=== PATIENT | female | born 1960 | race Caucasian/White ===

== ENCOUNTER 2017-10-19 21:42 | Emergency (ER) | payer OTHER ==
[2017-10-19 21:59] VITALS: TEMP 98.7
--- NOTE | 2017-10-19 22:12 | ED ---
Chest Pain HPI - General Chief Complaint: Chest Pain Stated Complaint: KENISHA Time Seen by Provider: 10/19/17 22:06 Source: patient Mode of arrival: ambulatory Limitations: no limitations - History of Present Illness Initial Comments: This patient is a 57-year-old woman who presents to be evaluated for a constellation of symptoms that include a nonproductive cough, some wheezing, and a feeling of chest congestion is been going on for nearly one month. The patient states that family finally prevailed upon her to have this checked today. MD Complaint: other Onset/Timin -: month(s) Pain Location: left chest, right chest Pain Radiation: none Quality: tightness Consistency: constant Improves With: nothing Worsens With: nothing Anginal Symptoms: dyspnea Other Symptoms: cough Treatments Prior to Arrival: none - Related Data Previous Rx's Medication Instructions Recorded Albuterol Inhaler [Ventolin Hfa 1 - 2 puff INHALATION Q6HR PRN #1 10/20/17 Inhaler] inhaler predniSONE 60 mg PO DAILY #30 tab 10/20/17 Allergies Allergy/AdvReac Type Severity Reaction Status Date / Time No Known Allergies Allergy Verified 10/19/17 21:59 Review of Systems ROS Statement: Those systems with pertinent positive or pertinent negative responses have been documented in the HPI. ROS Other: All systems not noted in ROS Statement are negative. Constitutional: Denies: fever, chills Respiratory: Reports: cough, dyspnea, wheezes. Denies: hemoptysis Cardiovascular: Reports: chest pain. Denies: palpitations, dyspnea on exertion , orthopnea, edema Gastrointestinal: Denies: abdominal pain, vomiting, diarrhea Genitourinary: Denies: dysuria, hematuria Musculoskeletal: Denies: back pain Skin: Denies: rash Neurological: Denies: headache, weakness, numbness EKG Findings - EKG Results: EKG: interpreted by YANETH SOL, sinus rhythm (Rate 83 bpm), normal axis, normal QRS, normal ST/T, no acute changes - MD, Pacemaker, Normal: Normal tracing: normal tracing Past Medical History Additional Past Medical History / Comment(s): anxiety History of Any Multi-Drug Resistant Organisms: None Reported Past Surgical History: Hysterectomy Past Psychological History: Anxiety Smoking Status: Never smoker Past Alcohol Use History: Occasional Past Drug Use History: None Reported General Exam Limitations: no limitations General appearance: alert, in no apparent distress Head exam: Present: atraumatic, normocephalic Eye exam: Present: normal appearance. Absent: scleral icterus, conjunctival injection Neck exam: Present: normal inspection Respiratory exam: Present: wheezes. Absent: respiratory distress, rales, rhonchi, stridor, accessory muscle use, decreased breath sounds, prolonged expiratory Cardiovascular Exam: Present: regular rate, normal rhythm, normal heart sounds. Absent: systolic murmur, diastolic murmur, rubs, gallop GI/Abdominal exam: Present: soft. Absent: distended, tenderness, guarding, rebound, rigid, mass Extremities exam: Present: normal inspection, normal capillary refill. Absent: pedal edema, calf tenderness Back exam: Present: normal inspection Neurological exam: Present: alert Skin exam: Present: warm, dry, intact, normal color. Absent: rash Course Vital Signs 10/19/17 10/19/17 10/19/17 21:56 23:34 23:53 Temperature 98.7 F Pulse Rate 89 94 80 Respiratory 18 20 Rate Blood Pressure 128/87 124/80 O2 Sat by Pulse 96 97 Oximetry 10/20/17 00:04 Temperature Pulse Rate 81 Respiratory Rate Blood Pressure O2 Sat by Pulse Oximetry Disposition Clinical Impression: Bronchitis Disposition: HOME SELF-CARE Condition: Good Instructions: Acute Bronchitis (ED) Prescriptions: Albuterol Inhaler [Ventolin Hfa Inhaler] 1 - 2 puff INHALATION Q6HR PRN #1 inhaler PRN Reason: Wheezing predniSONE 60 mg PO DAILY #30 tab Is patient prescribed a controlled substance at d/c from ED?: No Referrals: Manuel Mejia DO [Primary Care Provider] - 1-2 days
[2017-10-19 22:29] LABS: Basophils % (A) 0 %; Eosinophils # (A) 0.5 k/uL (0-0.7); Eosinophils % (A) 6 %; HCT 37.7 % (34.0-46.0); HGB 12.9 gm/dL (11.4-16.0); Lymphocytes # (A) 2.9 k/uL (1.0-4.8); Lymphocytes % (A) 36 %; MCH 29.4 pg (25.0-35.0); MCHC 34.2 g/dL (31.0-37.0); MCV 85.8 fL (80.0-100.0); Mean Platelet Volume 7.2; Monocytes # (A) 0.5 k/uL (0-1.0); Monocytes % (A) 6 %; Neutrophils % (A) 50 %; Platelet Count 371 k/uL (150-450); RDW 13.2 % (11.5-15.5)
[2017-10-19 22:38] LABS: ALT 38 U/L (9-52); AST 20 U/L (14-36); Albumin 4.4 g/dL (3.5-5.0); Alkaline Phosphatase 61 U/L (38-126); Anion Gap 17 mmol/L; Blood Urea Nitrogen 13 mg/dL (7-17); Calcium 9.9 mg/dL (8.4-10.2); Carbon Dioxide 20 mmol/L (22-30); Chloride 108 mmol/L (98-107); Glucose 103 mg/dL (74-99); Magnesium 2.1 mg/dL (1.6-2.3); Potassium 4.2 mmol/L (3.5-5.1); Sodium 145 mmol/L (137-145); Total Bilirubin 0.2 mg/dL (0.2-1.3); Total Protein 7.1 g/dL (6.3-8.2)
--- NOTE | 2017-10-19 22:38 | XR ---
EXAMINATION TYPE: XR chest 1V portable DATE OF EXAM: 10/19/2017 COMPARISON: NONE HISTORY: Chest pain TECHNIQUE: Single frontal view of the chest is obtained. FINDINGS: Heart and mediastinum are normal. Lungs are clear. Diaphragm is normal. There are chest le ads. Bony thorax appears normal. IMPRESSION: Normal chest
[2017-10-19 22:39] LABS: Partial Thromboplastin Time 23.3 sec (22.0-30.0); Prothrombin Time 9.9 sec (9.0-12.0)
[2017-10-19] MEDS ORDERED: ALBUTEROL NEBULIZED 2.5 MG/3 ML INHALATION STA (23:37)
[2017-10-20] MEDS ORDERED: predniSONE 20 MG TAB PO STA (00:19)
[2017-10-20 00:28] VITALS: BP 141/77; PULSE 90; RESP 16
== END 2017-10-20 00:33 | disposition home or self-care (01) ==
LOC: EC 21:42
DX: J40 Bronchitis, not specified as acute or chronic (principal); Z79.52 Long term (current) use of systemic steroids
CPT/HCPCS: 36415; 94640; 93005; 80053; 83735; 84484; 85025; 85610; 85730; 71045; 99285; J7512

== ENCOUNTER 2019-12-12 13:41 | Emergency (ER) | payer OTHER ==
[2019-12-12 14:01] VITALS: RESP 20; TEMP 98.5
[2019-12-12] MEDS ORDERED: KETOROLAC 60 MG/2 ML VIAL IM STA (14:07)
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
--- NOTE | 2019-12-12 15:16 | XR ---
EXAMINATION TYPE: XR sternum DATE OF EXAM: 12/12/2019 COMPARISON: NONE HISTORY: Pain TECHNIQUE: 2 views FINDINGS: Sternal segments have normal alignment. I see no evidence of a fracture. There is no sign o f retrosternal mass. IMPRESSION: Negative exam. No evidence of sternal fracture.
[2019-12-12 16:49] VITALS: BP 134/85; PULSE 71
== END 2019-12-12 16:50 | disposition home or self-care (01) ==
LOC: EC 13:41
DX: S80.01XA Contusion of right knee, initial encounter (principal); V43.52XA Car driver injured in collision with other type car in traffic accident, initial encounter; Y92.410 Unspecified street and highway as the place of occurrence of the external cause; Y93.89 Activity, other specified
CPT/HCPCS: 93005; 71120; 73564; 71046; 96372; 99284; J1885